=== PATIENT | male | born 1985 | race African-American/Black ===

== ENCOUNTER 2016-10-04 00:06 | Emergency (ER) | payer MEDICAID ==
[~2016-10-04] VITALS: Ht 180.3 cm; Wt 70.3 kg
--- NOTE | 2016-10-04 00:30 | NUR ---
PT PRESENTED TO THE ER WITH A C/O RT RIB PAIN S/P FALL ONTO A CURB X 3DAYS AGO. PT AMBULATED TO BED #1 WITH A STEADY GAIT. PT WAS GUARDING HIS RIGHT RIBS WHEN HE SAT ON THE BED. PT IS AWAITING EVAL BY .
[2016-10-04] MEDS ORDERED: HYDROMORPHONE 1 MG/1 ML DISP.SYRIN ONE (00:49)
[2016-10-04] MEDS ORDERED: ONDANSETRON 4 MG TAB.RAPDIS ONE (00:49)
[2016-10-04] MEDS ORDERED: HYDROMORPHONE 1 MG/1 ML DISP.SYRIN IM ONE (01:00)
[2016-10-04] MEDS ORDERED: ONDANSETRON 4 MG TAB.RAPDIS SL ONE (01:00)
--- NOTE | 2016-10-04 01:44 | NUR ---
PT REC'D AN INCENTIVE SPIROMETER.
--- NOTE | 2016-10-04 01:46 | NUR ---
RT IS AT THE BEDSIDE REVIEWING THE INCENTIVE SPIROMETER WITH THE PT.
--- NOTE | 2016-10-04 01:52 | NUR ---
Patient discharged to home in stable condition. Written and verbal after care instructions given. Patient verbalizes understanding of instruction AND RX. PT AMBULATED OUT WITH A STEADY GAIT. PT'S VSS. PT IS TAKING AN UBER HOME.
[2016-10-04 01:54] VITALS: BP 142/90
== END 2016-10-04 01:55 | disposition home or self-care (01) ==
LOC: ER 00:10
DX: S22.31XA Fracture of one rib, right side, initial encounter for closed fracture (principal); F17.200 Nicotine dependence, unspecified, uncomplicated; W10.1XXA Fall (on)(from) sidewalk curb, initial encounter; Y93.B2 Activity, push-ups, pull-ups, sit-ups; Y92.89 Other specified places as the place of occurrence of the external cause; Y99.9 Unspecified external cause status
CPT/HCPCS: 71010-TC; A4606; J1170; Q0162; Z7610

== ENCOUNTER 2016-10-09 04:34 | Emergency (ER) | payer MEDICAID ==
[~2016-10-09] VITALS: Ht 177.8 cm; Wt 72.6 kg
[2016-10-09 04:42] VITALS: BP 143/106
== END 2016-10-09 05:04 | disposition home or self-care (01) ==
LOC: ER 04:35
DX: R07.81 Pleurodynia (principal); F17.200 Nicotine dependence, unspecified, uncomplicated
CPT/HCPCS: A4606; Z7502; Z7610